=== PATIENT | male | born 1980 | race Caucasian/White ===

== ENCOUNTER 2018-10-19 09:42 | Day surgery (SDC) | payer OTHER ==
[~2018-10-19] VITALS: Ht 175.3 cm; Wt 77.1 kg
[2018-10-19] VITALS (13 sets, daily range): BP systolic 112–127; BP diastolic 61–77; PULSE 65–85; RESP 16–28; Ht 175.3 cm; Wt 77.1 kg
[~2018-10-19 09:42] MED LIST: ALPR0.5T PO; EPHEDrine SULFATE 50 MG/5 ML SYG ONE; LEVO750T25 PO; SEVOFLURANE 15 MIN ONE
[2018-10-19] MEDS ORDERED: LISI1TAB4 PO (10:19)
[2018-10-19] MEDS ORDERED: NEOMYC/POLYMYX/BACIT 30 GM OINT ONE (11:15)
[2018-10-19] MEDS ORDERED: POLYMYXIN/BACITRACIN 1L IRRIG ONE (11:15)
--- NOTE | 2018-10-19 11:42 | PREAC ---
Date/Time of Note Date/Time of Note DATE: 10/19/18 TIME: 11:39 Anesthesia Eval and Record Evaluation Time Pre-Procedure Interview DATE: 10/19/18 TIME: 11:39 Age 38 Sex male NPO: 8 hrs Preoperative diagnosis Painful retained hardware, right distal tibia Planned procedure Removal of hardware Past Medical History Past Medical History: Includes Cardio: HTN, Dyslipidemia GI: GERD Surgery & Anesthesia Issues No known issue Meds Anticoagulation: No Beta Johnathon within 24 hr: No Reason Beta Johnathon not given: Pt. not on B-Johnathon Reported Medications Lisinopril/Hydrochlorothiazide (Lisinopril-Hctz 10-12.5 mg Tab) 1 Each Tablet, 1 EACH PO DAILY, TAB 10/19/18 Discontinued Scripts Levofloxacin* (Levaquin*) 750 Mg Tablet, 750 MG PO DAILY for 10 Days, TAB Prov:CATY TORIBIO DO 07/13/16 Alprazolam* (Xanax*) 0.5 Mg Tab, 0.5 MG PO TID, #10 TAB Prov:CATY TORIBIO DO 07/12/16 Meds reviewed: Yes Allergies Coded Allergies: No Known Allergy (Unverified , 10/19/18) Allergies Reviewed: Yes Labs/Studies Labs Reviewed: Reviewed by anesthesiologist test: N/A Pre-procedure Exam Last vitals Vital Signs Date Temp Pulse Resp B/P (MAP) Pulse Ox O2 O2 Flow FiO2 Time Delivery Rate 10/19/18 98.4 65 16 127/77 98 Room Air 10:52 (94) Airway: Adequate mouth opening Mallampati: Mallampati I Teeth: Normal Lung: Normal Heart: Normal ASA Physical Status ASA physical status: 2 Emergency: None Planned Anesthetic General/MAC: LMA Planned Pain Management Parenteral pain med Pre-operative Attestations Prior to commencing anesthesia and surgery, the patient was re-evaluated, there was verification of: *The patient's identity *The results of appropriate recent lab work and preoperative vital signs *The above evaluation not changing prior to induction *Anesthetic plan, risk benefits, alternative and complications discussed with patient/family; questions answered; patient/family understands, accepts and wishes to proceed. BERNABE CLEVELAND MD Oct 19, 2018 11:42
[2018-10-19] MEDS ORDERED: LIDOCAINE 2% (SDV) 5 ML INJ ONE (11:49)
[2018-10-19] MEDS ORDERED: PROPOFOL 20 ML ONE (11:49)
--- NOTE | 2018-10-19 12:10 | HPN ---
Date/Time of Note Date/Time of Note DATE: 10/19/18 TIME: 12:10 ANDREW DAVENPORT MD Oct 19, 2018 12:10
[2018-10-19] MEDS ORDERED: POLYMYXIN/BACITRACIN 1L IRRIG IRR ONE (12:22)
[2018-10-19] MEDS ORDERED: CEFAZOLIN 1 GM INJ ONE (12:33)
[2018-10-19] MEDS ORDERED: FENTAnyl 50 MCG/ML VIAL ONE ×2 (12:33→13:22)
--- NOTE | 2018-10-19 12:59 | OPR ---
Date/Time of Note Date/Time of Note DATE: 10/19/18 TIME: 12:58 Operative Report Preoperative Diagnosis painful hardware right leg Postoperative Diagnosis same Operation/Procedure Performed removal of two screws Surgeon see signature line Director Client none Anesthesia Type: general Estimated Blood Loss: 0 - 10 ml's Transfusion none Specimen 2 screws Grafts/Implants none Tubes/Drains none Complications none Procedure Description removal of two screws ANDREW DAVENPORT MD Oct 19, 2018 12:59
[2018-10-19] MEDS ORDERED: FENTAnyl 50 MCG/ML VIAL IV PRN ×2 (13:30)
[2018-10-19] MEDS ORDERED: OXYCODONE/ACETAMINOPHEN (5/325) TAB PO PRN ×2 (13:30)
[2018-10-19] MEDS ORDERED: DIPHENHYDRAMINE 50 MG INJ IV PRN (13:30)
[2018-10-19] MEDS ORDERED: MEPERIDINE 25 MG INJ IV PRN (13:30)
[2018-10-19] MEDS ORDERED: MIDAZOLAM 1 MG/ML 2 ML INJ IV PRN (13:30)
[2018-10-19] MEDS ORDERED: ONDANSETRON 4 MG INJ IV PRN (13:30)
[2018-10-19] MEDS ORDERED: METOCLOPRAMIDE 10 MG INJ IV PRN (13:30)
[2018-10-19] MEDS: FENTAnyl 50 MCG/ML VIAL IV PRN ×2 (13:39→13:51)
--- NOTE | 2018-10-19 13:45 | PAC ---
Date/Time of Note Date/Time of Note DATE: 10/19/18 TIME: 13:44 Post-Anesthesia Notes Post-Anesthesia Note Last documented vital signs Vital Signs Date Temp Pulse Resp B/P (MAP) Pulse Ox O2 O2 Flow FiO2 Time Delivery Rate 10/19/18 99.3 85 21 112/ 97 Room Air 13:04 Activity: WNL Respiratory function: WNL Cardiovascular function: WNL Mental status: Baseline Pain reasonably controlled: Yes Hydration appropriate: Yes Nausea/Vomiting absent: Yes BERNABE CLEVELAND MD Oct 19, 2018 13:45
--- NOTE | 2018-10-19 21:37 | OPR ---
DATE OF OPERATION: 10/19/2018 SURGEON: Andrew Pardo MD ANESTHESIA: General. PREOPERATIVE DIAGNOSIS: Retained painful hardware, right tibia. POSTOPERATIVE DIAGNOSIS: Retained painful hardware, right tibia. PROCEDURE: Removal of screws from right leg consisting of 2 distal locking screws for Murrell and Neph ew tibial nail. OPERATION PERFORMED: 1. Removal of 2 screws. 2. Interpretation of intraoperative fluoroscopy x-ray. ESTIMATED BLOOD LOSS: 50 mL. COMPLICATIONS: None. INDICATION: The patient is approximately 1 year status post tibia fracture treated with intramedulla ry locked nailing with the Murrell and Nephew nail for the tip of the tibia. The patient has progresse d well. The fracture is satisfactory. He does have sensitivity and pain over the distal lateral scr ews, which appeared to be rubbing against his shoe. The risks and complications reviewed. At this p oint in time, only the 2 distal screws are to be removed as there is no indication that the rub is ca using any of his symptoms. He has no pain proximally in the mid shaft or the proximal tibia. DESCRIPTION OF PROCEDURE: The patient taken to the operating room and general anesthetic given with intubation, 2 grams of Kefzol given for prophylaxis. Tourniquet applied on the right leg. C-arm georgi ped and brought over the leg. Exsanguinated with Esmarch bandage, tourniquet inflated to 300 mmHg. Two distal locking screws noted from the lateral to medial direction. An incision was made under x-ray visualization. The screws were identified and removed satisfactoril y. Wound irrigated with antibiotic solution. Hemostasis ascertained using cautery. Skin closed wit h jong. Compression bandage applied. Tourniquet deflated. Anesthetic reversed. The patient maged en to recovery in stable condition. Dictated By: ANDREW PARDO MD HD/NTS Conf#: [id number] DID#: [id number] CC: ANDREW PARDO MD;*EndCC*
== END 2018-10-19 15:02 | disposition home or self-care (01) ==
LOC: SDS 09:42
PROVIDERS: ATTEND Specialist
DX: T84.84XA Pain due to internal orthopedic prosthetic devices, implants and grafts, initial encounter (principal); Y79.3 Surgical instruments, materials and orthopedic devices (including sutures) associated with adverse incidents; I10 Essential (primary) hypertension; E78.5 Hyperlipidemia, unspecified
CPT/HCPCS: 20680; 73610; 88300; J0690; J2405; J3010; Z7512; Z7610